=== PATIENT | male | born 1955 | race Caucasian/White ===

== ENCOUNTER 2021-07-01 14:14 | Emergency (ER) | payer OTHER ==
[~2021-07-01] VITALS: Ht 170.2 cm; Wt 73.9 kg
[2021-07-01 14:27] VITALS: BP 147/86
--- NOTE | 2021-07-01 14:44 | NUR ---
pt being assessed in [facility] by jd lovelace
[2021-07-01] MEDS ORDERED: KETOROLAC 30 MG/ML VIAL IM ONE (14:55)
--- NOTE | 2021-07-01 15:08 | NUR ---
66 y/o male, c/o hip pain radiates to to hip and down right leg, describes it as a burning sensation since january 2021. no edema or unilateral redness at site. a&o x4 with even and steady gait. lungs clear bl, heart rate even and regular. pt denies any fever, cp, sob, or cough at this time. pt states pain is 9/10 at this time. ermd made aware of pt. pmh: htn, dm2, hld nka med: denies
[2021-07-01] MEDS ORDERED: DICL100G5 TP (15:42)
--- NOTE | 2021-07-01 15:47 | NUR ---
Patient discharged with v/s stable. Written and verbal after care instructions ABOUT [facility] given and explained. Patient alert, oriented and verbalized understanding of instructions. Ambulatory with steady gait. All questions addressed prior to discharge. ID band removed. Patient advised to follow up with PMD. Rx of DICLOFENAC SODIUM given. Patient educated on indication of medication including possible reaction and side effects. Opportunity to ask questions provided and answered.
== END 2021-07-01 15:47 | disposition home or self-care (01) ==
LOC: EDBD 14:14 → MED 14:14
DX: M54.31 Sciatica, right side (principal); E11.9 Type 2 diabetes mellitus without complications; I10 Essential (primary) hypertension; Z79.899 Other long term (current) drug therapy
CPT/HCPCS: 96372; 99283; J1885